=== PATIENT | male | born 1945 | race Caucasian/White ===

== ENCOUNTER 2017-12-15 19:35 | Inpatient (IN) | payer OTHER, MEDICAID ==
[~2017-12-15] VITALS: Ht 185.4 cm; Wt 88.5 kg
[~2017-12-15 19:35] MED LIST: AMLO5TAB4 PO; CARB-61 PO; DOCU-144 PO; LISI10TA5 PO; MULT-1189 PO; OLAN5TAB3 PO; PROP10TA10 PO; TRAZ-126 PO
[2017-12-15 19:41] VITALS: BP_SYST 112
--- NOTE | 2017-12-15 19:49 | NUR ---
Patient to ER bed 02 to gown for evaluation. Side rails up. Report given to RAFAEL Hyde
--- NOTE | 2017-12-15 19:50 | NUR ---
Patient brought to ED via BLS from [facility] for abnormal labs. Patient referred to ED by Dr. Longo. Presents with WBC 21.2. Patient given 1 gm rocephin while at facility. Patient also given tylenol at approximately 1300. Patient presents with low grade fever of 99.3. Skin cool and diaphoretic. Patient reports recent cough and fever. Denies ABD or SOB.
--- NOTE | 2017-12-15 19:57 | NUR ---
ED MD Harrell at bedside for medical evaluation.
[2017-12-15] MEDS ORDERED: OLAN5TAB3 PO (20:00)
[2017-12-15] MEDS ORDERED: ROCPM1 IV (20:00)
[2017-12-15] MEDS ORDERED: NACL 0.9% 1,000 ML IV ONE (20:08)
[2017-12-15] MEDS ORDERED: NS 1000 ML IV.SOLN IV ONE (20:15)
--- NOTE | 2017-12-15 20:32 | NUR ---
Radiology at bedside for CXR.
[2017-12-15 20:39] LABS: HEMATOCRIT 31.3 % (36-54); MEAN CORPUSCULAR HGB CONC 35 % (32-36); MEAN CORPUSCULAR VOLUME 95 fL (79.0-98.0); RED BLOOD CELL COUNT(AUTO) 3.29 MIL/uL (4.2-6.2); RED CELL DISTRIBUTION WIDTH 12.4 % (9.0-15.0)
[2017-12-15 20:43] LABS: HEMOGLOBIN 10.8 g/dL (14.0-18.0); MEAN CORPUSCULAR HEMOGLOBIN 33 pg (27-31); PLATELET COUNT (AUTO) 186 K/uL (130-430); WHITE BLOOD COUNT (AUTO) 22.3 K/uL (4.8-10.8)
[2017-12-15 20:53] LABS: ANION GAP 9 (5-15); CALCIUM 8.9 mg/dL (8.4-11.0); CHLORIDE 100 mmol/L (98-107); CREATININE 1.59 mg/dL (0.55-1.30); GLUCOSE 151 mg/dL (70-99); INR 1.1 (0.80-1.20); PROTHROMBIN TIME 11.4 SECS (9.5-12.5); SODIUM SERUM 131 mmol/L (136-145); UREA NITROGEN, BLOOD 37 mg/dL (8-21)
[2017-12-15 20:55] LABS: ALANINE AMINOTRANSFERASE 31 U/L (12-78); AMYLASE 60 U/L (0-100); ASPARTATE AMINOTRANSFERASE 42 U/L (10-37); LIPASE 122 U/L (73-393); TOTAL BILIRUBIN 0.6 mg/dL (0.0-1.0)
[2017-12-15 21:37] LABS: BILIRUBIN,URINE NEGATIVE (NEGATIVE); BLOOD, URINE 2+ (NEGATIVE); CLARITY/URINE CLOUDY (CLEAR); COLOR,URINE YELLOW (YELLOW); GLUCOSE,URINE NEGATIVE (NEGATIVE); KETONES,URINE NEGATIVE (NEGATIVE); LEUKOCYTE ESTERASE ,URINE 2+ (NEGATIVE); NITRITE, URINE POSITIVE (NEGATIVE); PH,URINE 5.5 (5.0-8.0); PROTEIN URINE 2+ (NEGATIVE); UROBILINOGEN,URINE 0.2 (0.2-1.0)
--- NOTE | 2017-12-15 21:40 | NUR ---
Patient resting quietly in bed. Verbalizes no needs at this time. Patient able to utilize urinal to provide urine sample. Respirations even and unlabored. Denies pain at this time.
[2017-12-15 21:41] LABS: BAND % (MANUAL) 12 % (0-6); BASOPHILS % (MANUAL) 0 % (0-2); EOSINOPHILS % (MANUAL) 0 % (0-7); LYMPHOCYTES % (MANUAL) 3 % (20-46); MONOCYTES % (MANUAL) 9 % (0-11)
[2017-12-15] MEDS ORDERED: cefTRIAXone 1 GM IVPB PREMIX 50 ML IV ONE (21:45)
--- NOTE | 2017-12-15 22:00 | NUR ---
Medication reconciliation completed with information provided by patient. Any prior medication reconciliation on file was reviewed and corrected.
[2017-12-15 22:24] LABS: BACTERIA,URINE MANY /HPF (None Seen); COARSE GRANULAR CASTS,URINE 0-10 /LPF (None Seen); MUCUS,URINE 1+ /LPF (None Seen); URINE AMORPHOUS URATE 2+ /HPF (None Seen); WBC,URINE >100 /HPF (0-3)
--- NOTE | 2017-12-15 23:01 | NUR ---
ED MD Harrell at bedside reassessing patient.
--- NOTE | 2017-12-15 23:30 | NUR ---
End of life care decisions discussed with patient by Dr. Harrell. Opportunity for questions and concerns addressed. Patient's code status is Full Code paperwork completed and placed in chart.
--- NOTE | 2017-12-15 23:40 | NUR ---
aPatient will be admitted to care of Dr. Longo. Admitted to Med/Surg unit. Will go to room 135. Belongings list completed. Summary report printed. Report will be given at bedside. Transfer to [facility]. IV present no sign or symptom of infiltration.
--- NOTE | 2017-12-15 23:45 | NUR ---
ADMISSION NOTE Received patient from ER via rebecca, received report from DAYDAY HALL. Patient admitted with diagnosis oF UROSEPSIS. Patient oriented to hospital routine, call light, toileting and safety-patient verbalized understanding.
[2017-12-15 23:49] VITALS: BP_SYST 144
--- NOTE | 2017-12-15 23:50 | NUR ---
RECEIVED PT. FROM ADMISSION NURSE Received report from LIZA Buenrostro. Patient resting in bed, on 2 L O2 via NC. Patient A&O x 4, Divehi-speaking, and cooperative. Patient shows BUE tremors. Patient has minor aphasia. Patient has Right Wrist IV, patent and benign, saline locked. Patient on cold measures.
[2017-12-16] VITALS (8 sets, daily range): BP systolic 93–144
--- NOTE | 2017-12-16 | NUR ---
RN ROUNDING Patient resting in bed. Patient has no acute S/S of distress noted. Patient on 4 L O2 via NC. No C/O pain noted.
[2017-12-16] MEDS: NACL 0.9% 1,000 ML IV SCH ×2 (00:21→17:07)
[2017-12-16] MEDS ORDERED: PIPERACILLIN/TAZOBACTAM 3.375 GM/VIAL (ZOSYN) IV ONE (00:25)
[2017-12-16] MEDS: PIPERACILLIN/TAZO 3.375 GM in NS 50 ML IV SCH ×5 (00:45→23:01)
--- NOTE | 2017-12-16 04:04 | NUR ---
RN ROUNDING Patient sleeping in bed, no S/S of distress noted.
--- NOTE | 2017-12-16 07:30 | NUR ---
OPENING NOTE Patient laying to side in bed, eyes closed, appears to be sleeping but easy to arouse, a/o x4, nasal canula noted to 3L o2, breathing even and unlabored, vss, no elevated temperature noted at this time, BUE tremors noted, patient has slight aphasia, able to communicate and make needs known, iv to right wrist noted 22g infusing NS at 60ml/hr, patent. Plan of care discussed pt verbalized understanding, no s/s of acute distress noted, will follow up
--- NOTE | 2017-12-16 07:30 | NUR ---
RN CLOSING NOTE Report given to RAFAEL Bui. Patient sleeping in bed, on 3 L O2 via NC. Patient A&O x 4, Telugu-speaking, and cooperative. Patient shows BUE tremors. Patient has minor aphasia. Patient has Right Wrist IV 22G, patent and benign, infusing NS @ 60 ml/hr. Patient on cold measures for low grade fever. No acute S/S of distress noted.
[2017-12-16] MEDS: DOCUSATE SODIUM 100 MG CAPSULE PO SCH ×2 (08:19→20:11)
[2017-12-16] MEDS: LISINOPRIL 10 MG TABLET (PRINIVIL) PO SCH (08:21)
[2017-12-16] MEDS: PROPRANOLOL HCL 10 MG TABLET (INDERAL) PO SCH ×2 (08:21→20:12)
[2017-12-16] MEDS: amLODIPine BESYLATE 5 MG TABLET PO SCH (08:22)
[2017-12-16] MEDS: CARBIDOPA/LEVODOPA 25/100 MG TABLET PO SCH ×3 (08:22→20:12)
--- NOTE | 2017-12-16 10:10 | NUR ---
Physician at bedside Dr Longo at bedside, pt assessed, new order received for stat cbc, cmp. Md made aware of need for dvt prophylaxis, md stated to place orders for scds, will place order and follow up. Wholesale Manager also at bedside for hygiene and repositioning patient. call light within reach, safety precautions in place, will follow up
--- NOTE | 2017-12-16 10:35 | NUR ---
Nutrition Update Edmond Scale 17 noted. Pt admitted for urosepsis. Diet: cardiac BMI: 25.7 kg/m2 RD to follow per nutrition care standards.
[2017-12-16 11:25] LABS: HEMATOCRIT 27.9 % (36-54); HEMOGLOBIN 9.6 g/dL (14.0-18.0); MEAN CORPUSCULAR HEMOGLOBIN 33 pg (27-31); MEAN CORPUSCULAR HGB CONC 34 % (32-36); MEAN CORPUSCULAR VOLUME 95 fL (79.0-98.0); PLATELET COUNT (AUTO) 169 K/uL (130-430); RED BLOOD CELL COUNT(AUTO) 2.95 MIL/uL (4.2-6.2); RED CELL DISTRIBUTION WIDTH 12.4 % (9.0-15.0); WHITE BLOOD COUNT (AUTO) 19.5 K/uL (4.8-10.8)
[2017-12-16 11:30] LABS: ANION GAP 10 (5-15); CALCIUM 8.3 mg/dL (8.4-11.0); CHLORIDE 105 mmol/L (98-107); CREATININE 1.47 mg/dL (0.55-1.30); GLUCOSE 108 mg/dL (70-99); POTASSIUM 4.1 mmol/L (3.5-5.1); SODIUM SERUM 137 mmol/L (136-145); UREA NITROGEN, BLOOD 32 mg/dL (8-21)
[2017-12-16 11:35] LABS: ALANINE AMINOTRANSFERASE 15 U/L (12-78); ALBUMIN 2.5 g/dL (3.4-4.8); ASPARTATE AMINOTRANSFERASE 29 U/L (10-37); TOTAL BILIRUBIN 0.7 mg/dL (0.0-1.0)
[2017-12-16 11:40] LABS: BASOPHILS % (MANUAL) 0 % (0-2); EOSINOPHILS % (MANUAL) 0 % (0-7); LYMPHOCYTES % (MANUAL) 7 % (20-46); MONOCYTES % (MANUAL) 6 % (0-11)
--- NOTE | 2017-12-16 11:53 | NUR ---
Rounds Pt laying in bed, eyes closed, even rise and fall of chest noted, appears to be sleeping, no s/s of acute distress noted, nasal canula in place, iv fluids infusing, site patent and intact, scds in place, call light within reach. Bed alarm on for safety, will continue to monitor pt closely
--- NOTE | 2017-12-16 12:05 | NUR ---
EDMOND SCALE EVALUATION: Patient evaluated for a low Edmond score of 14. Patient was awake, alert, oriented x 4, and received in a [place] bed with a mattress. Patient is unable to turn in bed independently. Skin is fair; All extremities have contractures. Recommend reposition patient every 2 hours with pillow support and off-load pressure areas with pillows for pressure re-distribution. Elevate, off-load and float bilateral heels with pillows. Use moisture barrier cream on buttocks and other moisture susceptible areas QID and as needed for soiling. Perform skin care and monitor skin integrity Q shift. Place patient on a low air-loss mattress.
--- NOTE | 2017-12-16 13:55 | NUR ---
Rounds Pt laying to side, resting, easy to arouse, pt states he has no needs at this time, would just like to continue sleeping, iv fluids infusing, iv site patent and intact, vss, no elevated temperature noted, call light within reach, will follow up
--- NOTE | 2017-12-16 15:46 | NUR ---
ROUNDS PT SITTING UP IN BED, WATCHING TV, DENIES ANY NEEDS AT THIS TIME, PT REPOSITIONED TO OPPOSITE SIDE WITH PILLOW SUPPORT TO BLE, CALL LIGHT WITHIN REACH.
--- NOTE | 2017-12-16 17:45 | NUR ---
ROUNDS ESCALATOR OPERATOR AT BEDSIDE, ASSISTING PATIENT TO EAT DINNER, PT DENIES ANY OTHER NEEDS AT THIS TIME
--- NOTE | 2017-12-16 19:00 | NUR ---
CLOSING NOTE PATIENT SITTING UP IN BED, AWAKE, WATCHING TV, BREATHING EVEN AND UNLABORED, NO S/S OF ACUTE DISTRESS NOTED, IV FLUIDS INFUSING TO RIGHT WRIST AT ORDERED RATE, IV SITE PATENT AND INTACT, ALL NEEDS ATTENDED TO THROUGHOUT SHIFT, SAFETY PRECAUTIONS MAINTAINED, CALL LIGHT WITHIN REACH, BED ALARM ON, WILL ENDORSE CARE TO FOLLOWING SHIFT
--- NOTE | 2017-12-16 19:20 | NUR ---
OPENING NOTE RECEIVED PT AND REPORT FROM DAY SHIFT NURSE. PT IS SITTING UP AWAKE IN BED. PT DENIES ANY PAIN OR DISCOMFORT AT THIS TIME. PT SPEAKS MAORI AND ABLE TO VERBALIZE NEEDS. IV INTACT AND RUNNING IVF PER ORDERS. PT ON ROOM AIR. FALL AND SAFETY PRECAUTIONS IN PLACE. BED LOCKED IN LOWEST POSITION, BED ALARM ON. CALL LIGHT WITH PT. WILL CONTINUE TO MONITOR.
[2017-12-16] MEDS: traZODone HCL 50 MG TABLET (DESYREL) PO SCH (20:11)
[2017-12-16] MEDS: OLANZapine 5 MG TABLET PO SCH (20:12)
--- NOTE | 2017-12-16 20:18 | NUR ---
MEDICATION ADMINISTRATION ADMINISTERED MEDICATION PER ORDERS. EDUCATED PT ON MEDICATION, PT VERBALIZED UNDERSTANDING. JÚNIOR LIGHT WITH PT. WILL CONTINUE TO MONITOR.
--- NOTE | 2017-12-16 22:15 | NUR ---
ROUNDING NOTE PT IS SLEEPING IN BED. NO S/S OF DISTRESS OR DISCOMFORT. FALL AND SAFETY PRECAUTIONS IN PLACE. CALL LIGHT WITH PT. WILL CONTINUE TO MONITOR.
[2017-12-17 00:04] VITALS: BP_SYST 103
--- NOTE | 2017-12-17 00:20 | NUR ---
ROUNDING NOTE PATIENT IS RESTING IN BED. NO S/S OF DISTRESS OR DISCOMFORT. CALL LIGHT WITH PT. WILL CONTINUE TO MONITOR.
--- NOTE | 2017-12-17 02:15 | NUR ---
ROUNDING NOTE PT IS SLEEPING. NO S/S OF DISTRESS OR DISCOMFORT. BREATHING EVEN AND UNLABORED. FALL AND SAFETY PRECAUTIONS IN PLACE. WILL CONTINUE TO MONITOR.
--- NOTE | 2017-12-17 04:20 | NUR ---
LOW AIR LOSS MATTRESS TRANSFERRED PT TO LOW AIR LOSS MATTRESS. PT TOLERATED WELL. WILL CONTINUE TO MONITOR.
[2017-12-17] MEDS: PIPERACILLIN/TAZO 3.375 GM in NS 50 ML IV SCH ×3 (05:20→16:59)
--- NOTE | 2017-12-17 05:20 | NUR ---
IV ABX ADMINISTERED IV ABX PER ORDERS. PT SLEEPING. CALL LIGHT WITH PT. WILL CONTINUE TO MONITOR.
--- NOTE | 2017-12-17 06:11 | NUR ---
CLOSING NOTE WILL ENDORSE CARE AND REPORT TO DAY SHIFT NURSE. PT IS SLEEPING IN BED. NO S/S OF DISTRESS OR DISCOMFORT. ALL NEEDS MET THROUGHOUT SHIFT. IV INTACT AND RUNNING IVF PER ORDERS. PT IN STABLE CONDITION. FALL AND SAFETY PRECAUTIONS MAINTAINED DURING SHIFT. NO SIGNIFICANT CHANGES TO NOTE DURING SHIFT. CALL LIGHT WITH PT WILL CONTINUE TO MONITOR.
--- NOTE | 2017-12-17 07:50 | NUR ---
Opening note Patient laying in bed, resting, easy to arouse, a/ox3, VSS, no complaint of pain or visible s/s of distress. Nasal canula in place with O@ at 3 liters, IVF infusing to right wrist 22g at ordered rate, iv site patent and intact. Pt noted to be on a ZULEMA mattress, heels elevated. Pt states he is feeling better today, has as appetite today. Plan of care discussed with patient, pt verbalized understanding, safety precautions in place, call light within reach.
[2017-12-17 08:03] VITALS: BP_SYST 107
[2017-12-17] MEDS: NACL 0.9% 1,000 ML IV SCH ×2 (08:50→14:10)
[2017-12-17] MEDS: amLODIPine BESYLATE 5 MG TABLET PO SCH (08:56)
[2017-12-17] MEDS: LISINOPRIL 10 MG TABLET (PRINIVIL) PO SCH (08:56)
[2017-12-17] MEDS: DOCUSATE SODIUM 100 MG CAPSULE PO SCH ×2 (08:56→21:47)
[2017-12-17] MEDS: CARBIDOPA/LEVODOPA 25/100 MG TABLET PO SCH ×3 (08:57→21:48)
[2017-12-17] MEDS: PROPRANOLOL HCL 10 MG TABLET (INDERAL) PO SCH ×2 (08:57→21:48)
--- NOTE | 2017-12-17 10:00 | NUR ---
ROUNDS PT REQUESTING TO BE REPOSITIONED TO OPPOSITE SIDE, PT NOTED TO HAVE VOIDED. PT CLEANED AND REPOSITIONED IN BED, PILLOW SUPPORT TO BACK AND BLE. CALL LIGHT WITHIN REACH, WILL FOLLOW UP
--- NOTE | 2017-12-17 11:23 | NUR ---
Dietitian Recommendations *Recommend Mechanical soft 2gm Na diet w/ Ensure Enlive TID. Oral supplement will provide additional 1050 kcal and 60 g protein daily. Please see Nutritional Assessment for details. ROSALIND, RD
[2017-12-17 12:09] VITALS: BP_SYST 103
--- NOTE | 2017-12-17 12:30 | NUR ---
ROUNDS PT ASSISTED TO HAVE LUNCH DUE TO [place] MAKE IT DIFFICULT FOR PATIENT TO EAT. TOLERATED MEAL WELL. KEPT IN SEMI FOWLERS FOR ASPIRATION PRECAUTIONS WILL FOLLOW UP
--- NOTE | 2017-12-17 12:45 | NUR ---
DR VALENZUELA MAKING ROUNDS, NEW ORDERS RECEIVED, WILL CARRY OUT
[2017-12-17] MEDS ORDERED: TAMSULOSIN HCL 0.4 MG CAP PO ONE (14:00)
--- NOTE | 2017-12-17 14:30 | NUR ---
ROUNDS PT VOIDED, REPOSITIONED AND CLEANED. PT STATES HE IS FEELING BETTER. NO ABD PAIN OR DISCOMFORT, VOIDING WELL.
[2017-12-17 16:54] VITALS: BP_SYST 132
--- NOTE | 2017-12-17 17:00 | NUR ---
BLADDER SCAN PT WAS BLADDER SCANNED, RESULT 132 RESIDUAL. NO NEED FOR PLATA CATHETER, WILL ENDORSE TO FOLLOWING SHIFT TO BLADDER SCAN PT Q SHIFT PER MD ORDER
--- NOTE | 2017-12-17 18:58 | NUR ---
CLOSING NOTE PT SITTING UP IN BED, RESTING, EASY TO AROUSE, NO S/S OF ACUTE DISTRESS, NASAL CANULA IN PLACE, IVF INFUSING TO RIGHT WRIST AT ORDERED RATE, IV SITE PATENT AND INTACT, NO S/S OF INFILTRATION NOTED, PT INCONTINENT BUT VOIDED SEVERAL TIMES DURING SHIFT. SCS IN PLACE. ALL NEEDS ATTENDED TO THROUGHOUT SHIFT, SAFETY PRECAUTIONS MAINTAINED, CALL LIGHT WITHIN REACH, WILL GIVE REPORT TO FOLLOWING SHIFT
--- NOTE | 2017-12-17 19:25 | NUR ---
OPENING NOTE RECEIVED PT ENDORSEMENT REPORT FROM DAY SHIFT NURSE AT BEDSIDE. PT IS RESTING IN BED WITH EYES OPEN. PT IS AOX4, NO S/S OF SOB OR DISTRESS. PT IS ON O2 3 L/MIN VIA NC, TOLERATING WELL. PT HAS IV TO RIGHT HAND 22G, INFUSING FLUIDS AT ORDERED RATE. SKIN IS INTACT. POC DISCUSSED WITH PT. PT INSTRUCTED HOW TO USE CALL LIGHT AND ROOM PHONE, PT VERBALIZED UNDERSTANDING. SAFETY MEASURES IN PLACE, CALL LIGHT AND PHONE WITHIN REACH, BED IN LOWEST POSITION, BED WHEELS LOCKED, SIDE RAILS UP X2, BED ALARM ON, BEDSIDE TABLE WITHIN REACH. NO FURTHER NEEDS AT THIS TIME. WILL CONTINUE TO MONITOR PT.
--- NOTE | 2017-12-17 19:30 | NUR ---
NATALIA GUILLORY AT BEDSIDE FEEDING PT
--- NOTE | 2017-12-17 20:05 | NUR ---
RN ROUNDS PT IS RESTING IN BED WITH EYES OPEN, CHEST RISE EVEN AND UNLABORED. NO S/S OF SOB OR DISTRESS. IVF INFUSING WELL. VITAL SIGNS WNL. NO FURTHER NEEDS AT THIS TIME. SAFETY MEASURES IN PLACE, CALL LIGHT AND PHONE WITHIN REACH, BED IN LOWEST POSITION, BED WHEELS LOCKED, SIDE RAILS UP X2, BED ALARM ON, BEDSIDE TABLE WITHIN REACH. NO FURTHER NEEDS AT THIS TIME. WILL CONTINUE TO MONITOR PT.
[2017-12-17 20:25] VITALS: BP_SYST 128
[2017-12-17] MEDS: traZODone HCL 50 MG TABLET (DESYREL) PO SCH (21:47)
[2017-12-17] MEDS: TAMSULOSIN HCL 0.4 MG CAP PO SCH (21:48)
[2017-12-17] MEDS: OLANZapine 5 MG TABLET PO SCH (21:48)
--- NOTE | 2017-12-17 21:50 | NUR ---
RN ROUNDS PT IS RESTING IN BED WITH EYES OPEN, CHEST RISE EVEN AND UNLABORED. NO S/S OF SOB OR DISTRESS. IVF INFUSING WELL. VITAL SIGNS WNL. SCHEDULED MEDICATIONS ADMINISTERED PER ORDERS, PT TOLERATED WELL. [PT DENIES PAIN AT THIS TIME. NO FURTHER NEEDS AT THIS TIME. SAFETY MEASURES IN PLACE, CALL LIGHT AND PHONE WITHIN REACH, BED IN LOWEST POSITION, BED WHEELS LOCKED, SIDE RAILS UP X2, BED ALARM ON, BEDSIDE TABLE WITHIN REACH. WILL CONTINUE TO MONITOR PT.
--- NOTE | 2017-12-17 23:19 | NUR ---
RN ROUNDS PT IS RESTING IN BED WITH EYES CLOSED. CHEST RISE EVEN AND UNLABORED. NO S/S OF SOB OR DISTRESS. OXYGEN ON. IVF INFUSING WELL. NO NEEDS AT THIS TIME. SAFETY MEASURES IN PLACE, CALL LIGHT AND PHONE WITHIN REACH, BED IN LOWEST POSITION, BED WHEELS LOCKED, SIDE RAILS UP X2, BED ALARM ON, BEDSIDE TABLE WITHIN REACH. WILL CONTINUE TO MONITOR PT.
[2017-12-18 00:01] VITALS: BP_SYST 124; BP_SYST 133
--- NOTE | 2017-12-18 00:35 | NUR ---
RN ROUNDS PT RESTING WITH EYES CLOSED. NO S/S OF SOB OR DISTRESS. IVF INFUSING WELL. PT EASILY AWAKEN. SCHEDULED MEDICATIONS ADMINISTERED ORDERED. PT TOLERATED WELL. SAFETY MEASURES IN PLACE, CALL LIGHT AND PHONE WITHIN REACH, BED IN LOWEST POSITION, BED WHEELS LOCKED, SIDE RAILS UP X2, BEDSIDE TABLE WITHIN REACH. NO NEEDS AT THIS TIME. WILL CONTINUE TO MONITOR PT.
[2017-12-18] MEDS: PIPERACILLIN/TAZO 3.375 GM in NS 50 ML IV SCH ×4 (00:41→18:19)
--- NOTE | 2017-12-18 02:03 | NUR ---
RN ROUNDS PT RESTING IN BED WITH EYES CLOSED. NO S/S OF SOB OR DISTRESS. IVF INFUSING WELL. SAFETY MEASURES IN PLACE, CALL LIGHT AND PHONE WITHIN REACH, BED IN LOWEST POSITION, BED WHEELS LOCKED, SIDE RAILS UP X2, BEDSIDE TABLE WITHIN REACH. NO NEEDS AT THIS TIME. WILL CONTINUE TO MONITOR PT.
--- NOTE | 2017-12-18 05:39 | NUR ---
RN ROUNDS PT RESTING IN BED WITH EYES CLOSED. NO S/S OF SOB OR DISTRESS. IVF INFUSING WELL. PT EASILY AWAKEN, SCHEDULED ZOSYN ADMINISTERED ORDERED, PT TOLERATED WELL, IVF INFUSING WELL. NO FURTHER NEEDS AT THIS TIME. SAFETY MEASURES IN PLACE, CALL LIGHT AND PHONE WITHIN REACH, BED IN LOWEST POSITION, BED WHEELS LOCKED, SIDE RAILS UP X2, BEDSIDE TABLE WITHIN REACH. WILL CONTINUE TO MONITOR PT.
--- NOTE | 2017-12-18 06:13 | NUR ---
PT HAD OUTPUT OF 100 ML, BLADDER SCAN SHOWED 75 ML OF RESIDUAL
[2017-12-18 06:57] LABS: BASOPHILS % (AUTO) 0.3 % (0.0-2.0); EOSINOPHILS # (AUTO) 0.1 K/uL (0.0-0.4); EOSINOPHILS % (AUTO) 1.7 % (0.0-4.0); HEMOGLOBIN 9.6 g/dL (14.0-18.0); LYMPHOCYTES # (AUTO) 0.7 K/uL (1.0-5.5); LYMPHOCYTES % (AUTO) 10.1 % (20.5-51.5); MEAN CORPUSCULAR HEMOGLOBIN 34 pg (27-31); MEAN CORPUSCULAR HGB CONC 36 % (32-36); MEAN CORPUSCULAR VOLUME 97 fL (79.0-98.0); MONOCYTES # (AUTO) 0.9 K/uL (0.0-1.0); MONOCYTES % (AUTO) 13.3 % (1.7-9.3); NEUTROPHILS # (AUTO) 5.1 K/uL (1.8-7.7); NEUTROPHILS % (AUTO) 74.6 % (40.0-70.0); PLATELET COUNT (AUTO) 168 K/uL (130-430); RED BLOOD CELL COUNT(AUTO) 2.81 MIL/uL (4.2-6.2); RED CELL DISTRIBUTION WIDTH 12.4 % (9.0-15.0)
[2017-12-18 07:09] LABS: ANION GAP 7 (5-15); CALCIUM 8.7 mg/dL (8.4-11.0); CHLORIDE 106 mmol/L (98-107); CREATININE 1.36 mg/dL (0.55-1.30); GLUCOSE 99 mg/dL (70-99); POTASSIUM 4.1 mmol/L (3.5-5.1); SODIUM SERUM 136 mmol/L (136-145); UREA NITROGEN, BLOOD 27 mg/dL (8-21)
[2017-12-18 07:29] LABS: WHITE BLOOD COUNT (AUTO) 6.8 K/uL (4.8-10.8)
[2017-12-18 08:00] VITALS: BP_SYST 131
--- NOTE | 2017-12-18 08:00 | NUR ---
OPENING NOTE PT LAYING IN BED, RESTING, EASY TO AROUSE, NO S/S OF ACUTE DISTRESS OR PAIN, MILD TEMPERATURE NOTED AT 100.2, COOLING MEASURES INITIATED AND MD PAGED FOR ORDER FOR TYLENOL, NASAL CANULA IN PLACE, FWITH O2 AT 3 LITERS, PT SATURATING WELL. IV TO RIGHT HAND IN PLACE AND INFUSING FLUIDS AT ORDERED RATE, IV SITE PATENT AND INTACT. PLAN OF CARE DISCUSSED WITH PATIENT, PT VERBALIZED UNDERSTANDING, SAFETY PRECAUTIONS IN PLACE, CALL LIGHT WITHIN REACH, WILL MONITOR PT CLOSELY AND FOLLOW UP WITH ELEVATED TEMPERATURE MANAGEMENT
--- NOTE | 2017-12-18 08:06 | NUR ---
CLOSING NOTE ENDORSED PT REPORT TO DAY SHIFT NURSE. PT IS RESTING IN BED WITH EYES OPEN. PT IS AOX4, NO S/S OF SOB OR DISTRESS. PT IS ON O2 3 L/MIN VIA NC, TOLERATING WELL. PT HAS IV TO RIGHT HAND 22G, INFUSING FLUIDS AT ORDERED RATE. SKIN IS INTACT. POC DISCUSSED WITH PT. PT INSTRUCTED HOW TO USE CALL LIGHT AND ROOM PHONE, PT VERBALIZED UNDERSTANDING. SAFETY MEASURES IN PLACE, CALL LIGHT AND PHONE WITHIN REACH, BED IN LOWEST POSITION, BED WHEELS LOCKED, SIDE RAILS UP X2, BED ALARM ON, BEDSIDE TABLE WITHIN REACH. NO FURTHER NEEDS AT THIS TIME. WILL CONTINUE TO MONITOR PT.
[2017-12-18] MEDS: DOCUSATE SODIUM 100 MG CAPSULE PO SCH ×2 (08:27→21:27)
[2017-12-18] MEDS: PROPRANOLOL HCL 10 MG TABLET (INDERAL) PO SCH ×2 (08:28→21:27)
[2017-12-18] MEDS: amLODIPine BESYLATE 5 MG TABLET PO SCH (08:28)
[2017-12-18] MEDS: TAMSULOSIN HCL 0.4 MG CAP PO SCH ×2 (08:28→21:27)
[2017-12-18] MEDS: LISINOPRIL 10 MG TABLET (PRINIVIL) PO SCH (08:29)
[2017-12-18] MEDS: CARBIDOPA/LEVODOPA 25/100 MG TABLET PO SCH ×3 (08:29→21:27)
[2017-12-18] MEDS ORDERED: ACETAMINOPHEN 325 MG TABLET PO PRN (09:00)
--- NOTE | 2017-12-18 09:35 | NUR ---
ELEVATED TEMPERATURE PT TEMPERATURE 100.2, COOLING MEASURES CONTINUED AND PT GIVEN TYLENOL. WILL REASSESS
--- NOTE | 2017-12-18 10:30 | NUR ---
TEMPERATURE REASSESSED TEMP 99.0, PT STATES HE DOESN'T FEEL HOT ANYMORE. PT REPOSITIONED TO OPPOSITE SIDE WITH PILLOW SUPPORT, NO S/S OF DISTRESS, WILL FOLLOW UP
--- NOTE | 2017-12-18 11:45 | NUR ---
CRITICAL RESULT 1125; UC + FOR ESBL AND ECOLI OF THE URINE, PT PLACED ON ISOLATION PRECAUTIONS, AND MD CALLED. DR VALENZUELA NOTIFIED AT 1145. PT MADE AWARE AND EDUCATED REGARDING ISOLATION PRECAUTIONS
[2017-12-18 12:40] VITALS: BP_SYST 120
--- NOTE | 2017-12-18 14:00 | NUR ---
ROUNDS PT LAYING IN BED, EYES CLOSED, EVEN RISE AND FALL OF CHEST NOTED, NO S/S OF ACUTE DISTRESS OR PAIN, VSS, TEMPERATURE WITHIN NORMAL RANGE, PT SLIGHTLY REPOSITIONED TO OPPOSITE SIDE, PILLOW SUPPORT TO BACK AND HEELS, CALL LIGHT WITHIN REACH
[2017-12-18] MEDS ORDERED: ACET325T53 PO (14:55)
[2017-12-18] MEDS ORDERED: TAMS0.4C96 PO (14:55)
--- NOTE | 2017-12-18 15:55 | NUR ---
DC Planning: s/w Elyssa at [facility] # [phone], informed that the pt. is being discharged back to the facility. The pt will need isolation bed for esbl/mdro urine. Per Elyssa , there is no isolation but she will check with her steel pan form placing supervisor. ANIKET requested her to call nursing station if able to assign a bed for the pt. today. ANIKET faxed referral inquiry package attn to Adriana/steel pan form placing supervisor at [facility] fax# [phone]. Discharge package delivered to nursing station. RN may call any ambulance for transportation, no authorization needed. RAFAEL Bui made aware.
[2017-12-18 16:18] VITALS: BP_SYST 111
--- NOTE | 2017-12-18 16:18 | NUR ---
ID consult called: for Dr. Babb, regarding urosepsis, ordered by Dr. Chapa, spoke with Yumiko.
--- NOTE | 2017-12-18 16:23 | NUR ---
SONYA FROM CASE MANAGEMENT CALLED, WAS TOLD THAT [facility] DOES NTO HAVE AN ISOLATIN BED FOR THE PATIENT AT THE MOMENT, THEY WILL CALL IF BECOMES AVAILABLE, PT MADE AWARE.
[2017-12-18] MEDS: NACL 0.9% 1,000 ML IV SCH (18:10)
--- NOTE | 2017-12-18 19:00 | NUR ---
CLOSING NOTE LAYING IN BED, WATCHING TV, LAUGHING, NO S/S OF ACUTE DISTRESS OR PAIN, NASAL CANULA IN PLACE WITH O2 ATR 3 LITERS, IVF INFUSING TO RIGHT HAND AT ORDERED RATE, NO S/S OF INFILTRATION NOTED, SCDS IN PLACE, PT IN ISOLATION FOR ESBL AND ECOLI OF THE URINE. BLADDER SCAN RESULT 90ML NO PLATA CATHETER NEEDED AT THIS TIME. VSS. ALL NEEDS ATTENDED TO THROUGHOUT SHIFT, SAFETY PRECAUTION MAINTAINED, WILL GIVE REPORT TO FOLLOWING SHIFT
[2017-12-18 19:10] VITALS: BP_SYST 122
--- NOTE | 2017-12-18 19:10 | NUR ---
OPENING NOTE RECEIVED PT ENDORSEMENT REPORT FROM DAY SHIFT NURSE AT BEDSIDE. PT IS RESTING IN BED WITH EYES OPEN. PT IS AOX4, NO S/S OF SOB OR DISTRESS. PT HAS IV TO RIGHT HAND 22G, INFUSING FLUIDS AT ORDERED RATE. SKIN IS INTACT. POC DISCUSSED WITH PT. PT INSTRUCTED HOW TO USE CALL LIGHT AND ROOM PHONE, PT VERBALIZED UNDERSTANDING. SAFETY MEASURES IN PLACE, CALL LIGHT AND PHONE WITHIN REACH, BED IN LOWEST POSITION, BED WHEELS LOCKED, SIDE RAILS UP X2, BED ALARM ON, BEDSIDE TABLE WITHIN REACH. NO FURTHER NEEDS AT THIS TIME. WILL CONTINUE TO MONITOR PT.
--- NOTE | 2017-12-18 19:15 | NUR ---
RN ROUNDS PT IS RESTING IN BED WITH EYES OPEN. ISOLATION PRECAUTIONS IN PLACE, CONTACT ISOLATION PER PROTOCOL. SAFETY MEASURES IN PLACE, CALL LIGHT AND PHONE WITHIN REACH, BED IN LOWEST POSITION, BED WHEELS LOCKED, SIDE RAILS UP X2, BED ALARM ON, BEDSIDE TABLE WITHIN REACH. NO FURTHER NEEDS AT THIS TIME. WILL CONTINUE TO MONITOR PT.
[2017-12-18] MEDS: traZODone HCL 50 MG TABLET (DESYREL) PO SCH (21:26)
[2017-12-18] MEDS: OLANZapine 5 MG TABLET PO SCH (21:27)
--- NOTE | 2017-12-18 21:30 | NUR ---
RN ROUNDS PT IS RESTING IN BED WITH EYES OPEN. CHEST RISE EVEN AND UNLABORED. NO SOB NOTED, NO DISTRESS NOTED. SCHEDULED MEDICATIONS ADMINISTERED ORDERED. PT TOLERATED WELL. SAFETY MEASURES IN PLACE, CALL LIGHT AND PHONE WITHIN REACH, BED IN LOWEST POSITION, BED WHEELS LOCKED, SIDE RAILS UP X2, BED ALARM ON, BEDSIDE TABLE WITHIN REACH. NO FURTHER NEEDS AT THIS TIME. WILL CONTINUE TO MONITOR PT.
--- NOTE | 2017-12-18 23:45 | NUR ---
RN ROUNDS PT IS RESTING IN BED WITH EYES CLOSED. CHEST RISE EVEN AND UNLABORED. NO DISTRESS NOTED. ISOLATION PRECAUTIONS IN PLACE. SAFETY MEASURES IN PLACE, CALL LIGHT AND PHONE WITHIN REACH, BED IN LOWEST POSITION, BED WHEELS LOCKED, SIDE RAILS UP X2, BED ALARM ON, BEDSIDE TABLE WITHIN REACH. NO FURTHER NEEDS AT THIS TIME. WILL CONTINUE TO MONITOR PT.
[2017-12-19] VITALS: BP_SYST 130
[2017-12-19] MEDS: PIPERACILLIN/TAZO 3.375 GM in NS 50 ML IV SCH ×4 (01:08→17:27)
--- NOTE | 2017-12-19 02:35 | NUR ---
RN ROUNDS PT RESTING WITHE EYES CLOSED. CHEST RISE EVEN AND UNLABORED. NO S/S OF DISTRESS. NO S/S OF PAIN NOTED. IVF INFUSING WELL. NO FURTHER NEEDS AT THIS TIME. WILL CONTINUE TO MONITOR PT. ISOLATION PRECAUTION IN PLACE. SAFETY MEASURES IN PLACE.
--- NOTE | 2017-12-19 04:35 | NUR ---
RN ROUNDS PT RESTING WITHE EYES CLOSED. CHEST RISE EVEN AND UNLABORED. NO S/S OF DISTRESS. NO S/S OF PAIN NOTED. IVF INFUSING WELL. NO NEEDS AT THIS TIME. WILL CONTINUE TO MONITOR PT. SAFETY MEASURES IN PLACE.
--- NOTE | 2017-12-19 06:50 | NUR ---
CLOSING NOTE WILL ENDORSE PT REPORT TO DAY SHIFT NURSE. PT IS RESTING IN BED WITH EYES CLOSED. PT IS AOX4, NO S/S OF SOB OR DISTRESS. PT IS ON O2 2 L/MIN VIA NC, TOLERATING WELL. PT HAS IV TO RIGHT HAND 22G, INFUSING FLUIDS AT ORDERED RATE. SKIN IS INTACT. ISOLATION MEASURES IN PLACE. SAFETY MEASURES IN PLACE, CALL LIGHT AND PHONE WITHIN REACH, BED IN LOWEST POSITION, BED WHEELS LOCKED, SIDE RAILS UP X2, BED ALARM ON, BEDSIDE TABLE WITHIN REACH. NO NEEDS AT THIS TIME. WILL CONTINUE TO MONITOR PT.
--- NOTE | 2017-12-19 06:50 | NUR ---
RN ROUNDS PT RESTING WITHE EYES CLOSED. CHEST RISE EVEN AND UNLABORED. NO S/S OF DISTRESS. NO S/S OF PAIN NOTED. PT EASILY AWAKEN, SCHEDULED MEDICATIONS ADMINISTERED ORDERED, PT TOLERATED WELL, IVF INFUSING WELL. NO FURTHER NEEDS AT THIS TIME. WILL CONTINUE TO MONITOR PT. SAFETY MEASURES IN PLACE.
--- NOTE | 2017-12-19 07:30 | NUR ---
Initial notes: Patient on bed awake, alert and oriented. Stable. On contact precaution. I.V. access patent. Call light within reach. Safety measures in placed. Call light within reach. Report received from bedside.
[2017-12-19 08:15] VITALS: BP_SYST 139
[2017-12-19] MEDS: CARBIDOPA/LEVODOPA 25/100 MG TABLET PO SCH ×2 (08:58→15:38)
[2017-12-19] MEDS: DOCUSATE SODIUM 100 MG CAPSULE PO SCH (08:59)
[2017-12-19] MEDS: TAMSULOSIN HCL 0.4 MG CAP PO SCH (08:59)
[2017-12-19] MEDS: PROPRANOLOL HCL 10 MG TABLET (INDERAL) PO SCH (08:59)
[2017-12-19] MEDS: amLODIPine BESYLATE 5 MG TABLET PO SCH (08:59)
[2017-12-19] MEDS: LISINOPRIL 10 MG TABLET (PRINIVIL) PO SCH (09:00)
--- NOTE | 2017-12-19 09:04 | NUR ---
rounds: Patient on bed watching tv. no distress noted.
--- NOTE | 2017-12-19 10:00 | NUR ---
rounds: patient on bed resting. no distress noted.
[2017-12-19] MEDS: NACL 0.9% 1,000 ML IV SCH (12:16)
--- NOTE | 2017-12-19 12:30 | NUR ---
rounds: patient having lunch with feeding assist by CONSTRUCTION CONTROLLER.
[2017-12-19 12:57] VITALS: BP_SYST 132
--- NOTE | 2017-12-19 14:59 | NUR ---
D/C PLANNING Per [facility] unable to find referral requested re-fax. CM send referral awaiting acceptance and bed. Addendum: 12/19/17 at 1606 by Gloria Partida RN D/C PLANNING RECEIVED CALL FROM [facility] ADVISED PT CAN RETURN TO ROOM 18N AT [facility]. CALLED [facility] AT [phone] FOR [facility] CARDIAC SPECIALIST. PRIMARY NURSE AWARE. PT AWARE OF TRANSFER TODAY.
[2017-12-19 16:40] VITALS: BP_SYST 140
[2017-12-19 17:31] VITALS: BP_SYST 140
--- NOTE | 2017-12-19 17:54 | NUR ---
Transfer to [facility]: Patient awake, alert and oriented. Informed him he will go back to [facility]. Unable to sign due to Parkinson Disease, verbalized understanding of the transfer. Report given to RAFAEL Palacios of [facility].
--- NOTE | 2017-12-19 19:39 | NUR ---
PT TRANSFERRED Report given to RAFAEL Palacios at [facility]. Transfer packet with Transfer Orders and Medication Reconciliation form given to EMT with report. Exitcare provided. [facility] ID band removed, replaced with ID band with pt's name and . IV catheter in placed for continue of iv antibiotic. All belongings sent with patient. Patient left floor via gurney escorted by EMT in no distress.
== END 2017-12-19 19:45 | DRG 871 ==
LOC: SED 19:35 → SMU 23:24
PROVIDERS: ADMIT Internal Medicine Hospice and Palliative Medicine; ATTEND Internal Medicine Hospice and Palliative Medicine
DX: A41.9 Sepsis, unspecified organism (principal); E43 Unspecified severe protein-calorie malnutrition; N17.0 Acute kidney failure with tubular necrosis; N39.0 Urinary tract infection, site not specified; G20 Parkinson's disease; I10 Essential (primary) hypertension; F32.9 Major depressive disorder, single episode, unspecified; F02.80 Dementia in other diseases classified elsewhere, unspecified severity, without behavioral disturbance, psychotic disturbance, mood disturbance, and anxiety; M19.90 Unspecified osteoarthritis, unspecified site; B96.20 Unspecified Escherichia coli [E. coli] as the cause of diseases classified elsewhere; N40.0 Benign prostatic hyperplasia without lower urinary tract symptoms; Z16.12 Extended spectrum beta lactamase (ESBL) resistance; D63.8 Anemia in other chronic diseases classified elsewhere; Z78.9 Other specified health status; Z79.899 Other long term (current) drug therapy; Z68.25 Body mass index [BMI] 25.0-25.9, adult
CPT/HCPCS: 36415; 71045; 80048; 80053; 81000-TC; 82150-TC; 82550-TC; 83605; 83690-TC; 84484; 85007; 85025; 85027; 85610-TC; 85730-TC; 87040-TC; 87081; 87086; 87186-TC; 93005; J0696; J2543; J7030; J7040